=== PATIENT | female | born 1945 | race Caucasian/White ===

== ENCOUNTER 2017-12-31 11:08 | Emergency (ER) | payer MEDICARE, OTHER ==
--- NOTE | 2017-12-31 11:54 | ERPHSYRPT ---
- History of Present Illness Time Seen by Provider: 12/31/17 11:36 Source: patient Exam Limitations: no limitations Patient Subjective Stated Complaint: pt co pain/numbness to right buttock radiating down right left for a week, was seen and but on steriod with no relief Triage Nursing Assessment: pt alert, walked in for a limp. resp easy, skin w/d/p Physician History: The patient is a 72-year-old female complaining of right buttock pain that began about a week ago. And then a few days later the pain increased significantly in her right buttock and extended down the backside of her right leg all the way to her toes. She denies any trauma. She has some numbness and tingling in her toes and right foot. The numbness was much worse a couple days ago but is starting to "wake up". She denies problems with urination or defecation. The patient was seen in [facility] on and received a steroid shot and oral steroids. She took a Ocean Gate today with some relief. Over 40 years ago she had a similar problem that resolved with 6 days of complete bed rest. Her past medical history is significant for hypertension and depression. Method of Injury: unknown Occurred: last week Quality: burning, sharpness, stabbing Severity of Pain-Max: severe Severity of Pain-Current: severe Lower Extremities Pain: leg: right, thigh: right, foot: right, ankle: right Modifying Factors: Improves With: pain medication (norco and steroids) Associated Symptoms: none Allergies/Adverse Reactions: No Known Drug Allergies Allergy (Unverified 12/31/17 11:29) Home Medications: Citalopram Hydrobromide 20 mg* [ceLEXa 20 MG] 20 mg DAILY 02/16/14 [History] Lisinopril/Hydrochlorothiazide [Lisinopril-Hctz 20-25 mg Tab] 1 tab DAILY [History] Hx Tetanus, Diphtheria Vaccination/Date Given: No Hx Influenza Vaccination/Date Given: Yes Hx Pneumococcal Vaccination/Date Given: Yes - Review of Systems Constitutional: No Fever, No Chills Eyes: No Symptoms Ears, Nose, & Throat: No Symptoms Respiratory: No Cough, No Dyspnea Cardiac: No Chest Pain, No Edema, No Syncope Abdominal/Gastrointestinal: No Abdominal Pain, No Nausea, No Vomiting, No Diarrhea Genitourinary Symptoms: No Dysuria Musculoskeletal: Myalgias Skin: No Rash Neurological: Parasthesia Psychological: No Symptoms Endocrine: No Symptoms Hematologic/Lymphatic: No Symptoms Immunological/Allergic: No Symptoms All Other Systems: Reviewed and Negative - Past Medical History Pertinent Past Medical History: Yes Neurological History: Alzheimer's Disease ENT History: No Pertinent History Cardiac History: Hypertension Respiratory History: No Pertinent History Endocrine Medical History: No Pertinent History Musculoskeletal History: Other GI Medical History: No Pertinent History Psycho-Social History: Depression Female Reproductive Disorders: No Pertinent History - Past Surgical History Past Surgical History: Yes Gastrointestinal: Appendectomy Female Surgical History: Lumpectomy, Tubal Ligation - Social History Smoking Status: Current every day smoker Exposure to second hand smoke: Yes Drug Use: none Patient Lives Alone: No - Female History Hx Last Menstrual Period: post Hx Now: No - Nursing Vital Signs Nursing Vital Signs: Initial Vital Signs Temperature 97.2 F 12/31/17 11:22 Pulse Rate 93 H 12/31/17 11:22 Respiratory Rate 16 12/31/17 11:22 Blood Pressure 140/85 12/31/17 11:22 O2 Sat by Pulse Oximetry 97 12/31/17 11:22 Pain Scale Pain Intensity 6 - Physical Exam General Appearance: mild distress Eyes, Ears, Nose, Throat Exam: moist mucous membranes Neck Exam: non-tender, supple Cardiovascular/Respiratory Exam: chest non-tender, normal breath sounds, regular rate/rhythm, no respiratory distress Gastrointestinal/Abdominal Exam: non-tender, guarding Back Exam: other (tenderness to right buttock) Legs Exam: right leg: limited range of motion (Straight leg raise of the right leg is positive at 30.), other (Extension and flexion at the right ankle is normal. Normal movement of right toes. Normal sensation of the right foot and toes.) Neuro/Tendon Exam: normal sensation, normal motor functions Mental Status Exam: alert, oriented x 3, cooperative Skin Exam: normal color, warm, dry SpO2 Interpretation: normal SpO2: 97 Oxygen Delivery: Room Air - Radiology Exams L-Spine X-ray Interpretation: Interpreted by me, No Fracture, Subluxation (anterior listhesis of L4 over L5. Severe arthritis at L4/L5) Ordered Tests: Active Orders 24 hr Category Date Time Status LUMBAR LIMITED (2 OR 3 VIEWS) Stat Exams 12/31/17 12:39 Taken Medication Summary Discontinued Medications Generic Name Dose Route Start Last Admin Trade Name Shabana PRN Reason Stop Dose Admin Ketorolac Tromethamine 60 mg 12/31/17 12:00 12/31/17 12:07 Toradol 30 Mg Injection IM 12/31/17 12:01 60 mg STAT ONE Administration Ketorolac Tromethamine Confirm 12/31/17 12:04 Toradol 30 Mg Injection Administered 12/31/17 12:05 Dose 60 mg .ROUTE .STK-MED ONE - Progress Progress: improved Progress Note: 12/31/17 13:18 Improved after toradol 60 mg IM. Counseled pt/family regarding: rad results - Departure Time of Disposition: 13:18 Departure Disposition: Home Clinical Impression: Sciatic leg pain Condition: Stable Critical Care Time: No Referrals: JOSE DUBOSE [Primary Care Provider] - Additional Instructions: You have right sided sciatica. This is caused by disc protrusion in your lower back. You were given Toradol 60 mg by IM in the ER. Take Ocean Gate one tablet every 4-6 hours as needed for pain. Apply ice to the area as needed. Follow- up with your primary medical doctor if no improvement. You will likely need an MRI of your back if you have no further improvement. Prescriptions: Hydrocodone/APAP 5/325 [Ocean Gate 5/325 mg] 1 each PO Q4-6HPRN PRN #10 tablet MDD 6 PRN Reason: Pain
[2017-12-31] MEDS ORDERED: TORAdol 30 mg Injection IM ONE (12:00)
[2017-12-31] MEDS ORDERED: TORAdol 30 mg Injection ONE (12:04)
[2017-12-31 13:38] VITALS: BP 129/80; PULSE 89; O2SAT 98
--- NOTE | 2017-12-31 20:07 | XRAY ---
Indication: Sciatica. Comparison: None 3 views of the lumbar spine demonstrates 5 lumbar vertebral segments with mild osteopenia, mild dextroscoliosis centered at T12, moderate/advanced L4-S1 and lesser mild L2-L4 degenerative spondylosis, 11 mm L4 spondylolisthesis, and scattered vascular calcifications. No other bony, articular, or soft tissue abnormalities. Impression: Nonacute lumbar spine with chronic features.
== END 2017-12-31 13:38 | disposition home or self-care (01) ==
LOC: ED 11:08
DX: M79.605 Pain in left leg (principal); G30.9 Alzheimer's disease, unspecified; F02.80 Dementia in other diseases classified elsewhere, unspecified severity, without behavioral disturbance, psychotic disturbance, mood disturbance, and anxiety; I10 Essential (primary) hypertension; F32.9 Major depressive disorder, single episode, unspecified
CPT/HCPCS: 72100; 96372; 99284; J1885

== ENCOUNTER 2020-09-26 01:56 | Emergency (ER) | payer MEDICARE, OTHER ==
[2020-09-26] MEDS ORDERED: Lasix 40 MG/4 ML IV ONE (02:02)
[2020-09-26] MEDS ORDERED: MORPHINE SULFATE 4 MG INJ IV ONE (02:03)
[2020-09-26] MEDS ORDERED: MORPHINE SULFATE 4 MG INJ ONE ×2 (02:04→06:43)
[2020-09-26] MEDS ORDERED: Lasix 40 MG/4 ML ONE ×2 (02:04→02:06)
[2020-09-26 02:12] LABS: Absolute Neutrophil Ct (ANC) 6.81 (1.4-6.9); BASOPHIL % 0.2 % (0.0-0.4); Basophil (Absolute #) 0.03 (0-0.4); Eosinophil % 6.6 % (0.00-5.0); Eosinophil (Absolute #) 1.07 (0-0.5); Hematocrit 43.2 % (35-47); Hemoglobin 13.6 gm/dl (12.0-16.0); Lymphocyte (Absolute #) 7.26 (1.0-4.6); Lymphocytes % 44.7 % (24.0-44.0); Mean Corpuscular Hemoglobin 30.2 pg (26-32); Mean Corpuscular Hgb Concent. 31.5 g/dl (32-36); Mean Platelet Volume 9.2 fl (7.5-11.0); Monocyte (Absolute #) 1.07 (0.0-1.3); Monocytes % 6.6 % (0.0-12.0); Neutrophil % 41.9 % (36.0-66.0); Platelet Count 489 K/mm3 (150-450); Red Cell Distribution Width 13.1 % (11.5-14.0); White Blood Count 16.2 K/mm3 (4.0-10.5)
--- NOTE | 2020-09-26 02:14 | ERPHSYRPT ---
- History of Present Illness Time Seen by Provider: 09/26/20 02:14 Historian: patient Exam Limitations: clinical condition Physician History: Patient is a 75-year-old female who noticed the onset of some shortness of breath yesterday afternoon and then she awoke from sleep extremely short of breath diaphoretic. She presented by ambulance she has no significant cardiac history she does have some COPD and asthma. Timing/Duration: today Activities at Onset: sleep Quality: fullness Location: central Chest Pain Radiation: no radiation Severity of Pain-Max: mild Severity of Pain-Current: mild Modifying Factors: Improves With: lying down (Worse), sitting up (Improved) Associated Symptoms: shortness of breath Prior Chest Pain/Cardiac Workup: no prior cardiac workup Nitro Today/Relief: no nitro taken today Aspirin Treatment Today: no aspirin today Allergies/Adverse Reactions: No Known Drug Allergies Allergy (Unverified 12/31/17 11:29) Home Medications: Citalopram Hydrobromide 20 mg* [ceLEXa 20 MG] 20 mg DAILY 02/16/14 [History] Lisinopril/Hydrochlorothiazide [Lisinopril-Hctz 20-25 mg Tab] 1 tab DAILY 02/16/14 [History] Hx Tetanus, Diphtheria Vaccination/Date Given: No Hx Influenza Vaccination/Date Given: Yes Hx Pneumococcal Vaccination/Date Given: Yes - Review of Systems Constitutional: No Fever, No Chills Eyes: No Symptoms Ears, Nose, & Throat: No Symptoms Respiratory: Cough, Dyspnea, Wheezing, Other (Orthopnea) Cardiac: Chest Pain, No Edema, No Syncope Abdominal/Gastrointestinal: No Abdominal Pain, No Nausea, No Vomiting, No Diarrhea Genitourinary Symptoms: No Dysuria Musculoskeletal: No Back Pain, No Neck Pain Skin: No Rash Neurological: No Dizziness, No Focal Weakness, No Sensory Changes Psychological: No Symptoms Endocrine: No Symptoms All Other Systems: Reviewed and Negative - Past Medical History Pertinent Past Medical History: Yes Neurological History: Alzheimer's Disease ENT History: No Pertinent History Cardiac History: Hypertension Respiratory History: COPD Endocrine Medical History: No Pertinent History Musculoskeletal History: Other GI Medical History: No Pertinent History Psycho-Social History: Depression Female Reproductive Disorders: No Pertinent History - Past Surgical History Past Surgical History: Yes Gastrointestinal: Appendectomy Female Surgical History: Lumpectomy, Tubal Ligation - Social History Smoking Status: Current every day smoker Exposure to second hand smoke: Yes Drug Use: none Patient Lives Alone: No - Nursing Vital Signs Nursing Vital Signs: Initial Vital Signs Pulse Rate 148 H 09/26/20 01:57 Respiratory Rate 36 H 09/26/20 01:57 Blood Pressure 178/109 09/26/20 01:57 O2 Sat by Pulse Oximetry 99 09/26/20 01:57 Pain Scale Pain Intensity 4 - Physical Exam General Appearance: moderate distress Eye Exam: PERRL/EOMI, eyes nml inspection Ears, Nose, Throat Exam: normal ENT inspection, moist mucous membranes Neck Exam: normal inspection, non-tender, supple, JVD Respiratory Exam: respiratory distress, diminished breath sounds, crackles/rales, wheezing Cardiovascular Exam: tachycardia Gastrointestinal/Abdomen Exam: soft, No tenderness, No mass Back Exam: normal inspection, No CVA tenderness, No vertebral tenderness Extremity Exam: pedal edema Neurologic Exam: alert, oriented x 3, cooperative, normal mood/affect, sensation nml, No motor deficits Skin Exam: diaphoresis SpO2 Interpretation: normal O2 Delivery: Nasal Cannula Ordered Tests: Active Orders 24 hr Category Date Time Status EKG-ER Only STAT Care 09/26/20 02:04 Active EKG-ER Only STAT Care 09/26/20 06:43 Ordered Dotson [Catheter-[place] Dotson] STAT Care 09/26/20 02:34 Active IV Insertion STAT Care 09/26/20 02:04 Active CHEST 1 VIEW (PORTABLE) Stat Exams 09/26/20 02:05 Taken AMYLASE Stat Lab 09/26/20 02:08 Completed CBC W DIFF Stat Lab 09/26/20 02:08 Completed CMP Stat Lab 09/26/20 02:08 Completed CULTURE,URINE Stat Lab 09/26/20 03:57 Received D-DIMER QUANTITATIVE Stat Lab 09/26/20 02:08 Completed LIPASE Stat Lab 09/26/20 02:08 Completed Lactic Acid Stat Lab 09/26/20 02:04 Completed Lactic Acid Stat Lab 09/26/20 04:09 Completed MAGNESIUM Stat Lab 09/26/20 02:08 Completed NT PRO BNP Stat Lab 09/26/20 02:08 Completed PROTIME WITH INR Stat Lab 09/26/20 02:08 Completed PTT Stat Lab 09/26/20 02:08 Completed TROPONIN Q3H Lab 09/26/20 02:08 Completed TROPONIN Q3H Lab 09/26/20 05:27 Completed TROPONIN Q3H Lab 09/26/20 08:15 Ordered TROPONIN Q3H Lab 09/26/20 11:15 Ordered TROPONIN Q3H Lab 09/26/20 14:15 Ordered UA W/RFX UR CULTURE Stat Lab 09/26/20 03:34 Completed Medication Summary Discontinued Medications Generic Name Dose Route Start Last Admin Trade Name Shabana PRN Reason Stop Dose Admin Furosemide 80 mg 09/26/20 02:02 09/26/20 02:10 Lasix 40 Mg/4 Ml IV 09/26/20 02:03 80 mg STAT ONE Administration Furosemide Confirm 09/26/20 02:04 Lasix 40 Mg/4 Ml Administered 09/26/20 02:05 Dose 80 mg .ROUTE .STK-MED ONE Furosemide Confirm 09/26/20 02:06 Lasix 40 Mg/4 Ml Administered 09/26/20 02:07 Dose 40 mg .ROUTE .STK-MED ONE Morphine Sulfate 4 mg 09/26/20 02:03 09/26/20 02:10 Morphine Sulfate 4 Mg Inj IV 09/26/20 02:04 4 mg STAT ONE Administration Morphine Sulfate Confirm 09/26/20 02:04 Morphine Sulfate 4 Mg Inj Administered 09/26/20 02:05 Dose 4 mg .ROUTE .STK-MED ONE Morphine Sulfate 4 mg 09/26/20 06:43 09/26/20 06:45 Morphine Sulfate 4 Mg Inj IM 09/26/20 06:44 4 mg STAT ONE Administration Morphine Sulfate Confirm 09/26/20 06:43 Morphine Sulfate 4 Mg Inj Administered 09/26/20 06:44 Dose 4 mg .ROUTE .STK-MED ONE Lab/Rad Data: Laboratory Result Diagrams 09/26/20 02:08 09/26/20 02:08 Laboratory Results 09/26/20 09/26/20 09/26/20 Range/Units 05:27 04:09 03:34 WBC (4.0-10.5) K/mm3 RBC (4.1-5.4) M/mm3 Hgb (12.0-16.0) gm/dl Hct (35-47) % MCV (78-100) fl MCH (26-32) pg MCHC (32-36) g/dl RDW (11.5-14.0) % Plt Count (150-450) K/mm3 MPV (7.5-11.0) fl Gran % (36.0-66.0) % Eos # (Auto) (0-0.5) Absolute Lymphs (auto) (1.0-4.6) Absolute Monos (auto) (0.0-1.3) Lymphocytes % (24.0-44.0) % Monocytes % (0.0-12.0) % Eosinophils % (0.00-5.0) % Basophils % (0.0-0.4) % Absolute Granulocytes (1.4-6.9) Basophils # (0-0.4) PT (9.95-12.35) SECONDS INR (0.8-3.0) APTT (25.3-37.0) SECONDS D-Dimer (215-500) ng/mL Sodium (137-145) mmol/L Potassium (3.5-5.1) mmol/L Chloride (98-107) mmol/L Carbon Dioxide (22-30) mmol/L Anion Gap (5-15) MEQ/L BUN (7-17) mg/dL Creatinine (0.52-1.04) mg/dL Estimated GFR ML/MIN Glucose (74-106) mg/dL Lactic Acid 1.3 (0.4-2.0) Calcium (8.4-10.2) mg/dL Magnesium (1.6-2.3) mg/dL Total Bilirubin (0.2-1.3) mg/dL AST (14-36) U/L ALT (0-35) U/L Alkaline Phosphatase (38-126) U/L Troponin I 0.236 H* (0.000-0.034) ng/mL NT-Pro-B Natriuret Pep (0-900) pg/mL Serum Total Protein (6.3-8.2) g/dL Albumin (3.5-5.0) g/dL Amylase (30-110) U/L Lipase (23-300) U/L Urine Color STRAW (YELLOW) Urine Appearance CLEAR (CLEAR) Urine pH 7.0 (5-6) Ur Specific [place] 1.005 (1.005-1.025) Urine Protein 100 (Negative) Urine Ketones NEGATIVE (NEGATIVE) Urine Blood NEGATIVE (0-5) Adalberto/ul Urine Nitrite NEGATIVE (NEGATIVE) Urine Bilirubin NEGATIVE (NEGATIVE) Urine Urobilinogen NEGATIVE (0-1) mg/dL Ur Leukocyte Esterase NEGATIVE (NEGATIVE) Urine WBC (Auto) 3-5 (0-5) /HPF Urine RBC (Auto) NONE (0-2) /HPF U Epithel Cells (Auto) NONE (FEW) /HPF Urine Bacteria (Auto) NONE SEEN (NEGATIVE) /HPF Urine Culture Reflexed NO (NO) Urine Glucose NEGATIVE (NEGATIVE) mg/dL 09/26/20 09/26/20 09/26/20 Range/Units 02:08 02:08 02:08 WBC (4.0-10.5) K/mm3 RBC (4.1-5.4) M/mm3 Hgb (12.0-16.0) gm/dl Hct (35-47) % MCV (78-100) fl MCH (26-32) pg MCHC (32-36) g/dl RDW (11.5-14.0) % Plt Count (150-450) K/mm3 MPV (7.5-11.0) fl Gran % (36.0-66.0) % Eos # (Auto) (0-0.5) Absolute Lymphs (auto) (1.0-4.6) Absolute Monos (auto) (0.0-1.3) Lymphocytes % (24.0-44.0) % Monocytes % (0.0-12.0) % Eosinophils % (0.00-5.0) % Basophils % (0.0-0.4) % Absolute Granulocytes (1.4-6.9) Basophils # (0-0.4) PT 11.9 (9.95-12.35) SECONDS INR 1.05 (0.8-3.0) APTT 26.7 (25.3-37.0) SECONDS D-Dimer 714 H* (215-500) ng/mL Sodium 139 (137-145) mmol/L Potassium 4.4 (3.5-5.1) mmol/L Chloride 105 (98-107) mmol/L Carbon Dioxide 19 L (22-30) mmol/L Anion Gap 18.4 H (5-15) MEQ/L BUN 17 (7-17) mg/dL Creatinine 1.31 H (0.52-1.04) mg/dL Estimated GFR 42.3 ML/MIN Glucose 266 H (74-106) mg/dL Lactic Acid (0.4-2.0) Calcium 9.6 (8.4-10.2) mg/dL Magnesium 2.2 (1.6-2.3) mg/dL Total Bilirubin 0.30 (0.2-1.3) mg/dL AST 34 (14-36) U/L ALT 17 (0-35) U/L Alkaline Phosphatase 100 (38-126) U/L Troponin I < 0.012 (0.000-0.034) ng/mL NT-Pro-B Natriuret Pep 915 H (0-900) pg/mL Serum Total Protein 7.9 (6.3-8.2) g/dL Albumin 4.5 (3.5-5.0) g/dL Amylase 111 H (30-110) U/L Lipase 117 (23-300) U/L Urine Color (YELLOW) Urine Appearance (CLEAR) Urine pH (5-6) Ur Specific [place] (1.005-1.025) Urine Protein (Negative) Urine Ketones (NEGATIVE) Urine Blood (0-5) Adalberto/ul Urine Nitrite (NEGATIVE) Urine Bilirubin (NEGATIVE) Urine Urobilinogen (0-1) mg/dL Ur Leukocyte Esterase (NEGATIVE) Urine WBC (Auto) (0-5) /HPF Urine RBC (Auto) (0-2) /HPF U Epithel Cells (Auto) (FEW) /HPF Urine Bacteria (Auto) (NEGATIVE) /HPF Urine Culture Reflexed (NO) Urine Glucose (NEGATIVE) mg/dL 09/26/20 09/26/20 Range/Units 02:08 02:04 WBC 16.2 H (4.0-10.5) K/mm3 RBC 4.50 (4.1-5.4) M/mm3 Hgb 13.6 (12.0-16.0) gm/dl Hct 43.2 (35-47) % MCV 96.0 (78-100) fl MCH 30.2 (26-32) pg MCHC 31.5 L (32-36) g/dl RDW 13.1 (11.5-14.0) % Plt Count 489 H (150-450) K/mm3 MPV 9.2 (7.5-11.0) fl Gran % 41.9 (36.0-66.0) % Eos # (Auto) 1.07 H (0-0.5) Absolute Lymphs (auto) 7.26 H (1.0-4.6) Absolute Monos (auto) 1.07 (0.0-1.3) Lymphocytes % 44.7 H (24.0-44.0) % Monocytes % 6.6 (0.0-12.0) % Eosinophils % 6.6 H (0.00-5.0) % Basophils % 0.2 (0.0-0.4) % Absolute Granulocytes 6.81 (1.4-6.9) Basophils # 0.03 (0-0.4) PT (9.95-12.35) SECONDS INR (0.8-3.0) APTT (25.3-37.0) SECONDS D-Dimer (215-500) ng/mL Sodium (137-145) mmol/L Potassium (3.5-5.1) mmol/L Chloride (98-107) mmol/L Carbon Dioxide (22-30) mmol/L Anion Gap (5-15) MEQ/L BUN (7-17) mg/dL Creatinine (0.52-1.04) mg/dL Estimated GFR ML/MIN Glucose (74-106) mg/dL Lactic Acid 4.6 H (0.4-2.0) Calcium (8.4-10.2) mg/dL Magnesium (1.6-2.3) mg/dL Total Bilirubin (0.2-1.3) mg/dL AST (14-36) U/L ALT (0-35) U/L Alkaline Phosphatase (38-126) U/L Troponin I (0.000-0.034) ng/mL NT-Pro-B Natriuret Pep (0-900) pg/mL Serum Total Protein (6.3-8.2) g/dL Albumin (3.5-5.0) g/dL Amylase (30-110) U/L Lipase (23-300) U/L Urine Color (YELLOW) Urine Appearance (CLEAR) Urine pH (5-6) Ur Specific [place] (1.005-1.025) Urine Protein (Negative) Urine Ketones (NEGATIVE) Urine Blood (0-5) Adalberto/ul Urine Nitrite (NEGATIVE) Urine Bilirubin (NEGATIVE) Urine Urobilinogen (0-1) mg/dL Ur Leukocyte Esterase (NEGATIVE) Urine WBC (Auto) (0-5) /HPF Urine RBC (Auto) (0-2) /HPF U Epithel Cells (Auto) (FEW) /HPF Urine Bacteria (Auto) (NEGATIVE) /HPF Urine Culture Reflexed (NO) Urine Glucose (NEGATIVE) mg/dL - Progress Progress: improved, re-examined Air Movement: fair Progress Note: 09/26/20 07:04 Just prior to shift change, patient's troponin had increased from normal to 0.236 and there was change in her EKG with inversion of T waves. I spoke with Dr. Rubio, emergency department physician at [facility]. Because of the recent changes, he accepts the patient in an emergency department emergency department transfer. I reviewed with him the patient's history and the EKG changes as well as the change in her troponin levels. Counseled pt/family regarding: lab results, diagnosis, need for follow-up, rad results - Departure Departure Disposition: Transfer Clinical Impression: Congestive heart failure, Elevated troponin Condition: Serious Critical Care Time: Yes Critical Care Time(excluding separately billable procedures): Critical 30-74 mins Referrals: MERY ARCE DO [Primary Care Provider] - Instructions: Heart Failure
[2020-09-26 02:21] LABS: INR 1.05 (0.8-3.0); PROTIME 11.9 SECONDS (9.95-12.35)
[2020-09-26 02:24] LABS: PTT 26.7 SECONDS (25.3-37.0)
[2020-09-26 02:28] LABS: ALBUMIN 4.5 g/dL (3.5-5.0); ANION GAP 18.4 MEQ/L (5-15); BILIRUBIN,TOTAL 0.3 mg/dL (0.2-1.3); Calcium 9.6 mg/dL (8.4-10.2); Creatinine 1 1.31 mg/dL (0.52-1.04); EST GLOMERULAR FILTRATION RATE 42.3 ML/MIN; MAGNESIUM 2.2 mg/dL (1.6-2.3); Potassium 4.4 mmol/L (3.5-5.1); Total Protein 7.9 g/dL (6.3-8.2)
[2020-09-26 04:17] LABS: Appearance CLEAR (CLEAR); Bilirubin NEGATIVE (NEGATIVE); Blood NEGATIVE Ery/ul (0-5); Glucose NEGATIVE (NEGATIVE); Ketones NEGATIVE (NEGATIVE); Leukocyte Esterase NEGATIVE (NEGATIVE); Nitrite NEGATIVE (NEGATIVE); Protein,Urine Dip 100 (Negative); Specific Gravity 1.005 (1.005-1.025); Urobilinogen NEGATIVE mg/dL (0-1)
[2020-09-26 04:18] LABS: Bacteria NONE SEEN /HPF (NEGATIVE)
[2020-09-26 06:18] VITALS: O2SAT 98
[2020-09-26] MEDS ORDERED: MORPHINE SULFATE 4 MG INJ IM ONE (06:43)
[2020-09-26 07:06] VITALS: BP 142/90; PULSE 100
--- NOTE | 2020-09-26 07:51 | XRAY ---
Indication: Short of breath. Comparison: July 01, 2019. Portable chest remains hyperinflated with slight increasing diffuse interstitial lung markings bilaterally. No focal infiltrate, consolidation, or large effusion. Stable right midlung calcified nodule further detailed on CT chest July 03, 2019. Heart not enlarged. Bony thorax intact again with mild osteopenia and degenerative changes. Impression: 1. New prominent interstitial lung markings bilaterally. Pneumonitis not completely excluded in the right clinical setting. 2. Stable COPD and right middle lobe calcified nodule.
== END 2020-09-26 07:14 | disposition short-term general hospital (02) ==
LOC: ED 01:56
DX: I50.9 Heart failure, unspecified (principal); R74.8 Abnormal levels of other serum enzymes; J44.9 Chronic obstructive pulmonary disease, unspecified; Z79.899 Other long term (current) drug therapy
CPT/HCPCS: 36000; 36415; 51702; 71045; 80053; 81001; 82150; 83605; 83690; 83735; 83880; 84484; 85025; 85379; 85610; 85730; 87086; 93005; 96374; 96375; 96376; 99285; 99291; J1940; J2270